=== PATIENT | female | born 1960 | race Caucasian/White ===

== ENCOUNTER 2018-10-31 15:12 | Observation (INO) | payer BC ==
[~2018-10-31] VITALS: Ht 162.6 cm; Wt 81.8 kg
[2018-10-31] VITALS (10 sets, daily range): BP systolic 124–195; BP diastolic 76–123
[2018-10-31] MEDS ORDERED: SYNTHROID88 MCG PO (15:49)
[2018-10-31] MEDS ORDERED: ALBUTEROL SULF8.5 GM INH (15:50)
[2018-10-31 16:35] LABS: BASOPHILS 0.5 % (0-2); HEMATOCRIT 44.6 % (36.0-48.0); HEMOGLOBIN 15.5 g/dL (12-16); IMMATURE GRANULOCYTES 0.3 % (0-5); LYMPHOCYTES 26.3 % (15-50); MCH 34.8 pg (26.0-34.0); MCHC 34.8 g/dL (31.0-37.0); MEAN PLATELET VOLUME 10.5 fL (7.4-10.4); MONOCYTES 7.6 % (2-11); NEUTROPHILS 64.3 % (40-80); PLATELET COUNT 160 10x3/uL (130-400); RBC 4.46 10x6/uL (4.00-5.40); WBC 5.9 10x3/uL (4.8-10.8)
[2018-10-31 16:42] LABS: APTT 28.1 SECONDS (22.8-39.4); INR 0.91 (0.85-1.17); PROTIME 11.8 SECONDS (11.6-15.0)
[2018-10-31 16:43] LABS: D-DIMER-QUANTITATIVE < 0.27 ug/mLFEU (0.20-0.54)
[2018-10-31 16:49] LABS: ALBUMIN 4.1 g/dL (3.4-5.0); ALKALINE PHOSPHATASE 107 U/L (46-116); ALT (SGPT) 123 U/L (10-68); BILIRUBIN - TOTAL 0.68 mg/dL (0.2-1.3); CALC OSMOLALITY 276 mosm/kg (275-300); CHLORIDE - SERUM 100 mmol/L (98-107); CREATININE - SERUM 0.8 mg/dL (0.6-1.3); GLUCOSE 99 mg/dL (74-106); POTASSIUM - SERUM 4.5 mmol/L (3.5-5.1); PROTEIN - SERUM 7.2 g/dL (6.4-8.2); SODIUM 139 mmol/L (136-145); UREA NITROGEN 10 mg/dL (7-18); eGFR NON AFRICAN AMERICAN 78 mL/min (90-120)
[2018-10-31 17:02] LABS: TROPONIN-I < 0.017 ng/mL (0.000-0.060)
--- NOTE | 2018-10-31 22:00 | NUR ---
RECEIVED FROM ER VIA WC. ALERT/ORIENTED X4. AMBULATES WITH STEADY GAIT. IV IN LEFT AC INTACT SL. DRAIN CLEANER TAKING VS AND ARE IN NORMAL RANGE. DENIES PAIN. REQUESTED A SANDWICH AND DIET SODA. ORIENTED TO THE ROOM AND CALL LIGHT.
[2018-11-01] VITALS: BP 131/83
[2018-11-01 00:59] VITALS: BP 131/85; Ht 162.6 cm; Wt 81.8 kg
[2018-11-01 04:00] VITALS: BP 120/63
[2018-11-01 05:45] LABS: BASOPHILS 0.5 % (0-2); EOSINOPHILS 2.2 % (0-7); HEMATOCRIT 42.3 % (36.0-48.0); HEMOGLOBIN 14.4 g/dL (12-16); IMMATURE GRANULOCYTES 0.2 % (0-5); LYMPHOCYTES 24.9 % (15-50); MCH 33.8 pg (26.0-34.0); MCV 99.3 fL (80.0-100.0); NEUTROPHILS 61.2 % (40-80); RBC 4.26 10x6/uL (4.00-5.40); RDW 11.9 % (11.5-14.5)
[2018-11-01 06:30] LABS: ALBUMIN 3.3 g/dL (3.4-5.0); ALKALINE PHOSPHATASE 81 U/L (46-116); ALT (SGPT) 97 U/L (10-68); BILIRUBIN - TOTAL 0.89 mg/dL (0.2-1.3); CALC OSMOLALITY 276 mosm/kg (275-300); CALCIUM 8.5 mg/dL (8.5-10.1); CARBON DIOXIDE 25.9 mmol/L (21.0-32.0); CHLORIDE - SERUM 102 mmol/L (98-107); CKMB 0.1 U/L (0.0-3.6); CREATINE KINASE 40 UL (21-215); CREATININE - SERUM 0.6 mg/dL (0.6-1.3); GLUCOSE 97 mg/dL (74-106); PROTEIN - SERUM 6.2 g/dL (6.4-8.2); SODIUM 139 mmol/L (136-145); UREA NITROGEN 11 mg/dL (7-18); eGFR NON AFRICAN AMERICAN > 90 mL/min (90-120)
[2018-11-01 06:33] LABS: POTASSIUM - SERUM 3.5 mmol/L (3.5-5.1); TROPONIN-I < 0.017 ng/mL (0.000-0.060)
[2018-11-01 06:43] LABS: PLATELET COUNT 126 10x3/uL (130-400); WBC 4.2 10x3/uL (4.8-10.8)
--- NOTE | 2018-11-01 07:30 | NUR ---
RECEIVED PT IN BED AAOX4 RESP UNLABORED DENIES ANY NEEDS OR DISCOMFORT AT THIS TIME
[2018-11-01 08:41] VITALS: BP 107/62
[2018-11-01 11:43] VITALS: BP 102/64
--- NOTE | 2018-11-01 14:29 | NUR ---
PT REFUSED TO WEAR SCDs STATES I GET UP AND WALK AROUND QUITE A BIT
[2018-11-01 16:00] LABS: CKMB 0.2 U/L (0.0-3.6); CREATINE KINASE 44 UL (21-215); TROPONIN-I < 0.017 ng/mL (0.000-0.060)
[2018-11-01 16:43] VITALS: BP 124/84
[2018-11-01] MEDS ORDERED: ZITHROMAX250 MG PO (17:58)
[2018-11-01] MEDS ORDERED: LISINOPRIL10 MG PO (17:58)
--- NOTE | 2018-11-01 19:15 | NUR ---
REVIEWED DISCHARGE INSTRUCTIONS WITH PT STATES UNDERSTANDING COPY GIVEN DCD SALINE LOCK TO LAC WITH IV CATHETER INTACT SITE FREE OF REDNESS OR EDEMA PT DISCHARGED HOME LEFT UNIT VIA W/C IN STABLE CONDITION WITH ALL PERSONAL BELONGINGS
--- NOTE | 2018-11-02 08:27 | MORECARE ---
CASE MANAGEMENT DISCHARGE SUMMARY PATIENT: BLAYNE MENDOZA UNIT: [id number] ADM DATE: 10/31/18 AGE: 58 : 60 SEX: F ROOM/BED: D.2114 AUTHOR: CELESTINE FLYNN PHYSICIAN: REFERRING PHYSICIAN: FABIANO SMITH MD DATE OF SERVICE: 11/02/18 Discharge Plan Patient Name: [facility]LAY[facility] [facility] 1960 Planned Disposition: Home Anticipated Discharge Date: 11/01/18 Discharge Date: 11/01/2018 Expected LOS: 1 Initial Reviewer: [id number] Initial Review Date: 11/02/2018 Generated: 11/02/18 9:26 am Patient Name: BLAYNE MENDOZA Page [id number] at 0827 All edits/amendments must be made on the electronic document DICTATION DATE: 11/02/18825 BLUEPRINT DEVELOPER: KRIS 11/02/18825 RPT#: [id number] DC DATE:11/01/18 STATUS: DIS IN [facility] [address] [facility] [place] [address] END OF REPORT
== END 2018-11-01 19:15 | disposition home or self-care (01) ==
LOC: D.ER 15:12 → D.M2 19:54 → OBSVTIME 19:54 → D.EDHOLD 19:54 → D.M2 20:33
PROVIDERS: Family Medicine; ADMIT Internal Medicine Nephrology
DX: I16.9 Hypertensive crisis, unspecified (principal); R07.9 Chest pain, unspecified